=== PATIENT | female | born 1995 | race Caucasian/White ===

== ENCOUNTER 2022-12-15 01:41 | Inpatient (IN) | payer OTHER ==
[~2022-12-15] VITALS: Ht 154.9 cm; Wt 88.5 kg
--- NOTE | 2022-12-15 03:25 | NUR ---
to er bed 9, BIBSELF FROM HOME W/ CC OF RECTAL BLEEDING. -BLOOD THINNER, -CONSTIPATION. AAOX4, BREATHING EVEN AND NON LABORED, CONNECTED TO MONITOR.
[2022-12-15] MEDS ORDERED: PANTOPRAZOLE 80 MG in IV NS 0.9% 100 ML IV ONE (03:30)
[2022-12-15] MEDS ORDERED: PANTOPRAZOLE 40 MG VIAL ONE (03:49)
--- NOTE | 2022-12-15 03:54 | NUR ---
MOVE SHEET SUBMITTED
[2022-12-15 04:32] LABS: BASOPHILS % (AUTO) 0.4 % (0.0-2.0); EOSINOPHILS % (AUTO) 6.7 % (0.0-6.0); HEMATOCRIT 37 % (33-45); HEMOGLOBIN 12.1 g/dL (11.5-14.8); LYMPHOCYTES # (AUTO) 3.9 K/uL (0.8-4.8); LYMPHOCYTES % (AUTO) 41.5 % (20.0-44.0); MEAN CORPUSCULAR HGB CONC 32 g/dl (31.0-36.0); MEAN CORPUSCULAR VOLUME 80 fL (82-100); MONOCYTES # (AUTO) 1.1 K/uL (0.1-1.30); MONOCYTES % (AUTO) 11.6 % (2.0-12.0); NEUTROPHILS # (AUTO) 3.7 K/uL (1.8-8.9); NEUTROPHILS % (AUTO) 39.8 % (43.0-81.0); PLATELET COUNT (AUTO) 301 K/uL (150-450); RED BLOOD CELL COUNT(AUTO) 4.69 MIL/uL (4.0-5.2); WHITE BLOOD COUNT (AUTO) 9.3 K/uL (4.3-11.0)
[2022-12-15 04:45] LABS: CALCIUM, SERUM 9.6 mg/dL (8.5-10.1); CREATININE 0.8 mg/dL (0.6-1.3); POTASSIUM 3.8 mmol/L (3.5-5.1)
[2022-12-15 04:50] LABS: BILIRUBIN,DIRECT 0.1 mg/dL (0.0-0.2); BILIRUBIN,TOTAL 0.2 mg/dL (0.2-1.0); TOTAL PROTEIN, SERUM 8.2 g/dL (6.4-8.2)
--- NOTE | 2022-12-15 05:34 | NUR ---
DR MONTAÑO ON PHONE CALL WITH SALLY WELLINGTON NP
[2022-12-15] MEDS ORDERED: ACETAMINOPHEN 325 MG TABLET PO PRN (06:00)
[2022-12-15] MEDS ORDERED: ONDANSETRON HCL/PF 4 MG/2 ML VIAL IVP PRN (06:00)
--- NOTE | 2022-12-15 06:32 | NUR ---
report given to Radha VÁZQUEZ for felisa
--- NOTE | 2022-12-15 06:34 | NUR ---
REPORT GIVEN TO JODY Cervantes RN FOR BARRY
--- NOTE | 2022-12-15 06:53 | NUR ---
transferred to bed 319 in stable condition
--- NOTE | 2022-12-15 07:30 | NUR ---
RN MS Admission Note 27 years old females came from ER. Handoff reports received from charge nurse. Pt A/O*4, follow commands, no pain, no SOB, and no distress at this moment. Respiration regular, even and unlabored. Skin dry and intact. IV site right arm 20G patent and dressing intact. IV fluid NS started at 75mL/H per order. Bowel sounds present all quadrants. Hand wet primer powder blender strong equally CMS intact. Pt doesn't report of bleeding from rectum this morning. All safety measures in place. Bed in low and locked, call light and table in reach, side rails up*2. Will continue monitoring.
[2022-12-15] MEDS: IV NS 0.9% 1,000 ML IV PRN ×2 (08:26→23:37)
[2022-12-15 08:45] VITALS: BP 119/67; TEMP 98.6
[2022-12-15] MEDS ORDERED: PANTOPRAZOLE 40 MG VIAL IV SCH (09:00)
[2022-12-15 15:56] VITALS: BP 121/60; TEMP 98.1
--- NOTE | 2022-12-15 18:45 | NUR ---
RN MS Closing Note Pt A/O*4, follow commands, no pain, no SOB, and no distress at this moment. Respiration regular, even and unlabored. Skin dry and intact. IV site right hand 20G patent and dressing intact. IV fluid NS running at 75mL/H per order. Bowel sounds present all quadrants. No bowel movement this morning. Voided 3 times. Hand candle pourer strong equally CMS intact. All safety measures in place. Bed in low and locked, call light and table in reach, side rails up*2. Endorsed pt care to filter screen cleaner.
--- NOTE | 2022-12-15 19:30 | NUR ---
MS RN OPENING NOTE PT AWAKE IN BED, FAMILY AT BEDSIDE. A/O X4 AND ABLE TO MAKE NEEDS KNOWN. PT STABLE ON ROOM AIR. NO SOB OR S/S OF RESPIRATORY DISTRESS. BREATHING EVEN AND UNLABORED. IV ACCESS R HAND 20G, INTACT AND PATENT, RUNNING NS @ 75 ML/HR. NO COMPLAINTS OF PAIN OR DISCOMFORT AT THIS TIME. SAFETY PRECAUTIONS IN PLACE. BED IN LOWEST LOCKED POSITION, HOB ELEVATED, SIDE RAILS UP X2, AND CALL LIGHT AND TABLE WITHIN REACH. ALL NEEDS MET AT THIS TIME.
[2022-12-15 22:28] VITALS: BP 115/70; TEMP 98
--- NOTE | 2022-12-16 06:21 | NUR ---
RN NOTE CALLED AND FOLLOWED UP WITH [facility] REGARDING URINE HCG. WAS TOLD THEY WOULD FOLLOW UP EVERYTIME AND NEVER GOT CALL BACK. AT 0600 I CALLED AGAIN ASKING WHY THE URINE HCG WAS NOT DONE AND WAS TOLD THAT THEY NEVER GOT THE URINE. AFTER TELLING THEM THE URINE WAS PICKED UP YESTERDAY AT 1600 AND IT SAYS PENDING, DID THEY SAY THAT THE URINE MUST HAVE BEEN LEAKING AND ANOTHER SAMPLE MUST BE TAKEN. SAMPLE CUP TAKEN INTO PATIENTS ROOM BUT PATIENT STATED "I DON'T HAVE TO PEE RIGHT NOW". INFORMED PATIENT TO USE THE CALL LIGHT WHEN SHE IS READY TO URINATE SO I CAN COLLECT THE SAMPLE AND SEND IT TO LAB. WAS ALSO INFORMED MRSA WAS NOT PROCESSED AND THEY "DO NOT KNOW WHY" BUT WAS TOLD I NEED TO COLLECT ANOTHER SAMPLE. WILL COLLECT MRSA SWAB WHEN URINE IS COLLECTED PATIENT STILL TRYING TO GET SOME SLEEP THIS MORNING. CHARGE NURSE JODY GRAY.
--- NOTE | 2022-12-16 06:40 | NUR ---
RN NOTE URINE AND MRSA IN [place]. CALLED LAB AND INFORMED THEM TO COME PICK IT UP. WAS TOLD THEY WERE SENDING SOMEONE.
--- NOTE | 2022-12-16 06:59 | NUR ---
MS RN CLOSING NOTE PT AWAKE IN BED. A/O X4 AND ABLE TO MAKE NEEDS KNOWN. PT STABLE ON ROOM AIR. NO SOB OR S/S OF RESPIRATORY DISTRESS. BREATHING EVEN AND UNLABORED. IV ACCESS R HAND 20G, INTACT AND PATENT, RUNNING NS @ 75 ML/HR. NO COMPLAINTS OF PAIN OR DISCOMFORT AT THIS TIME. URINE AND MRSA RECOLLECTED AND IN [place], LAB AWARE. NO EPISODES OF RECTAL BLEEDING THIS SHIFT, NO BM. SAFETY PRECAUTIONS IN PLACE AT ALL TIMES. BED IN LOWEST LOCKED POSITION, HOB ELEVATED, SIDE RAILS UP X2, AND CALL LIGHT AND TABLE WITHIN REACH. ALL NEEDS MET AT THIS TIME AND WILL ENDORSE TO ONCOMING NURSE FOR BARRY.
[2022-12-16 07:19] LABS: BASOPHILS % (AUTO) 0.2 % (0.0-2.0); EOSINOPHILS % (AUTO) 4.9 % (0.0-6.0); HEMATOCRIT 36 % (33-45); HEMOGLOBIN 11.4 g/dL (11.5-14.8); LYMPHOCYTES % (AUTO) 46.8 % (20.0-44.0); MEAN CORPUSCULAR HGB CONC 31 g/dl (31.0-36.0); MEAN CORPUSCULAR VOLUME 82 fL (82-100); MONOCYTES # (AUTO) 0.6 K/uL (0.1-1.30); MONOCYTES % (AUTO) 5.9 % (2.0-12.0); NEUTROPHILS # (AUTO) 4.5 K/uL (1.8-8.9); NEUTROPHILS % (AUTO) 42.2 % (43.0-81.0); PLATELET COUNT (AUTO) 278 K/uL (150-450); RED BLOOD CELL COUNT(AUTO) 4.44 MIL/uL (4.0-5.2); WHITE BLOOD COUNT (AUTO) 10.7 K/uL (4.3-11.0)
--- NOTE | 2022-12-16 07:42 | NUR ---
OPENING NOTE PATIENT AWAKE A/Ox4 ON ROOM AIR WITH NO S/S OF SOB OR DISTRESS. IV ACCESS ON R HAND 20G, INTACT AND PATENT. NO PAIN AT THIS TIME. PATIENT EXPRESS HAVING NO RECTAL BLEEDING THROUGHOUT THE NIGHT/ THIS MORNING. NO S/S OF ACTIVE BLEEDING OR EDEMA. AMBULATORY WITH STEADY GAIT: BRP. FALL AND SAFETY PRECAUTION IN PLACE: BED LOCKED AND AT THE LOWEST POSITION, SRx2, CALL LIGHT WITHIN REACH.
[2022-12-16 07:56] LABS: CALCIUM, SERUM 8.5 mg/dL (8.5-10.1); CREATININE 0.5 mg/dL (0.6-1.3); PHOSPHORUS 4.2 mg/dL (2.5-4.9); POTASSIUM 3.7 mmol/L (3.5-5.1)
[2022-12-16 08:00] VITALS: BP 121/81; TEMP 97.7
[2022-12-16] MEDS ORDERED: IOHEXOL-300 100 ML VIAL IV ONE (09:10)
[2022-12-16] MEDS ORDERED: CT SWABBABLE VALVE TRANS SET 1 EA INFUS.SET MC ONE (09:11)
[2022-12-16] MEDS ORDERED: IV NS 0.9% 250 ML IV ONE (09:11)
[2022-12-16] MEDS: PANTOPRAZOLE 40 MG TABLET.DR PO SCH (09:53)
[2022-12-16 16:00] VITALS: BP 111/66; TEMP 98.2
[2022-12-16] MEDS ORDERED: PEG 3350/NA SULF,BICARB,CL/KCL 4,000 ML BOTTLE PO ONE ×2 (18:00)
--- NOTE | 2022-12-16 19:33 | NUR ---
CLOSING NOTE PATIENT IN RESTROOM. NO ASSISTANCE NEED. A/Ox4. CONFIRMED NO PAIN. PATIENT TEACHING ON HOW TO USE BATHROOM CALL LIGHT. ENDORSEMENT TO HOLLOW TILE PARTITION ERECTOR NURSE.
--- NOTE | 2022-12-16 19:35 | NUR ---
MEDICATION NOTE LATE ADMINISTRATION DUE TO LATE MEDICATION ARRIVAL. PHARMACY AWARE.
--- NOTE | 2022-12-16 19:40 | NUR ---
MS RN OPENING NOTE PT AWAKE IN BED. A/O X4 AND ABLE TO MAKE NEEDS KNOWN. PT STABLE ON ROOM AIR. NO SOB OR S/S OF RESPIRATORY DISTRESS. BREATHING EVEN AND UNLABORED. IV ACCESS R HAND 20G, INTACT AND PATENT, RUNNING NS @ 75 ML/HR. NO COMPLAINTS OF PAIN OR DISCOMFORT AT THIS TIME. BSC PLACED AT BEDSIDE FOR [place] ADMINISTRATION, PT CURRENTLY DRINKING MEDICATION. SAFETY PRECAUTIONS IN PLACE. BED IN LOWEST LOCKED POSITION, HOB ELEVATED, SIDE RAILS UP X2, AND CALL LIGHT AND TABLE WITHIN REACH. ALL NEEDS MET AT THIS TIME.
[2022-12-16 20:00] VITALS: BP 111/67; TEMP 98.2
[2022-12-17] MEDS ORDERED: SORBITOL SOLUTION 70% 30 ML SOLUTION PO ONE (06:00)
[2022-12-17] MEDS ORDERED: SORBITOL SOLUTION 70% 30 ML SOLUTION PO SCH (06:00)
--- NOTE | 2022-12-17 06:32 | NUR ---
MS RN CLOSING NOTE PT AWAKE IN BED. A/O X4 AND ABLE TO MAKE NEEDS KNOWN. PT STABLE ON ROOM AIR. NO SOB OR S/S OF RESPIRATORY DISTRESS. BREATHING EVEN AND UNLABORED. IV ACCESS R HAND 20G, INTACT AND PATENT, RUNNING NS @ 75 ML/HR. NO COMPLAINTS OF PAIN OR DISCOMFORT AT THIS TIME. NO EPISODES OF RECTAL BLEEDING THIS SHIFT. KEPT NPO EXCEPT MEDS AFTER MIDNIGHT, DRANK ENTIRE PROCEDURE PREP. CONSENTS SIGNED AND IN CHART. SURGICAL CHECKLIST COMPLETE. SAFETY PRECAUTIONS IN PLACE AT ALL TIMES. BED IN LOWEST LOCKED POSITION, HOB ELEVATED, SIDE RAILS UP X2, AND CALL LIGHT AND TABLE WITHIN REACH. ALL NEEDS MET AT THIS TIME AND WILL ENDORSE TO ONCOMING NURSE FOR BARRY.
[2022-12-17 07:00] VITALS: BP 110/70; TEMP 97
--- NOTE | 2022-12-17 07:31 | NUR ---
MS RN OPENING NOTE RECEIVED PT ASLEEP IN BED. A/O X4 AND ABLE TO MAKE NEEDS KNOWN. PT STABLE ON ROOM AIR. NO SOB OR S/S OF RESPIRATORY DISTRESS. BREATHING EVEN AND UNLABORED. IV ACCESS R HAND 20G, INTACT AND PATENT, RUNNING NS @ 75 ML/HR. NO COMPLAINTS OF PAIN OR DISCOMFORT AT THIS TIME. NO EPISODES OF RECTAL BLEEDING THIS SHIFT. KEPT NPO FOR SURGERY PROCEDURE LATER AT 1230. CONSENTS SIGNED AND IN CHART. SURGICAL CHECKLIST COMPLETE. SAFETY PRECAUTIONS IN PLACE AT ALL TIMES. BED IN LOWEST LOCKED POSITION, HOB ELEVATED, SIDE RAILS UP X2, AND CALL LIGHT AND TABLE WITHIN REACH. ALL NEEDS MET AT THIS TIME AND WILL CONTINUE TO MONITOR.
[2022-12-17] MEDS: PANTOPRAZOLE 40 MG TABLET.DR PO SCH (08:27)
[2022-12-17] MEDS: IV NS 0.9% 1,000 ML IV PRN (08:28)
--- NOTE | 2022-12-17 12:10 | NUR ---
RN NOTES PT LEFT FOR COLONOSCOPY. ALL CONSENTS SIGNED. PREOP CHECKLIST DONE.
--- NOTE | 2022-12-17 13:04 | NUR ---
RN NOTES PT BACK FROM SURGERY. NO DISTRESS NOTED. PT AWAKE/ALERT
[2022-12-17 13:51] VITALS: BP 105/50; TEMP 97.9
[2022-12-17] MEDS ORDERED: ANESTHESIA TRAY IN PYXIS 1 EA TRAY MC ONE (14:12)
--- NOTE | 2022-12-17 14:15 | NUR ---
MS DISTRIBUTOR SALES CONSULTANT NOTES PT DISCHARGE STABLE, NO DISTRESS. DENIES PAIN, BREATHING NORMALLY WITHOUR DIFFICULTY. LEFT AMBULATORY ACCOMPANIED BY FAMILY. ALL BELONGINGS CHECKED AND RECONCILED. SKIN INTACT. ID BAND AND IV ACCESS REMOVED. HEALTH TEACHINGS REINFORCED AND ENCOURAGE HIGH FIBER DIET. INSTRUCTED PT TO RETURN TO ER OR CALL 911 IN CASE OF EMERGENCY. PT VERBALIZED UNDERSTANDING. CHARGE NURSE AWARE.
== END 2022-12-17 14:15 | disposition home or self-care (01) | DRG 395 ==
LOC: ER 01:50 → MED 05:40
PROC: 0DJD8ZZ Inspection of Lower Intestinal Tract, Via Natural or Artificial Opening Endoscopic (ICD-10-PCS; principal; 2022-12-17)
DX: K64.8 Other hemorrhoids (principal); L40.9 Psoriasis, unspecified; E66.9 Obesity, unspecified; Z68.36 Body mass index [BMI] 36.0-36.9, adult; K64.4 Residual hemorrhoidal skin tags; D75.89 Other specified diseases of blood and blood-forming organs; R74.01 Elevation of levels of liver transaminase levels
CPT/HCPCS: 36415; 74178; 80048-TC; 80061-TC; 80076-TC; 83690-TC; 83735-TC; 84100-TC; 84703-TC; 85025-TC; 85730-TC; 86850-TC; 87081-TC; A4223; C9113; G0378; J2704; J3490; J7030; J7050; Q9967

== ENCOUNTER 2024-01-06 22:55 | Emergency (ER) | payer MEDICAID, OTHER ==
[~2024-01-06] VITALS: Ht 154.9 cm; Wt 99.8 kg
[2024-01-07 00:02] LABS: BASOPHILS # (AUTO) 0.1 K/uL (0.0-0.2); BASOPHILS % (AUTO) 0.7 % (0.0-2.0); EOSINOPHILS # (AUTO) 0.1 K/uL (0.0-0.7); HEMATOCRIT 37 % (33-45); HEMOGLOBIN 12.3 g/dL (11.5-14.8); LYMPHOCYTES # (AUTO) 3.2 K/uL (0.8-4.8); LYMPHOCYTES % (AUTO) 36.8 % (20.0-44.0); MEAN CORPUSCULAR HEMOGLOBIN 27 PG (26.0-33.0); MEAN CORPUSCULAR HGB CONC 33 g/dl (31.0-36.0); MEAN CORPUSCULAR VOLUME 81 fL (82-100); MONOCYTES # (AUTO) 0.6 K/uL (0.1-1.30); MONOCYTES % (AUTO) 7.1 % (2.0-12.0); NEUTROPHILS # (AUTO) 4.8 K/uL (1.8-8.9); NEUTROPHILS % (AUTO) 54.4 % (43.0-81.0); PLATELET COUNT (AUTO) 342 K/uL (150-450); RED BLOOD CELL COUNT(AUTO) 4.63 MIL/uL (4.0-5.2); RED CELL DISTRIBUTION WIDTH 15.7 % (11.5-15.0); WHITE BLOOD COUNT (AUTO) 8.7 K/uL (4.3-11.0)
[2024-01-07 00:14] LABS: CALCIUM, SERUM 8.7 mg/dL (8.5-10.1); CARBON DIOXIDE 22 mmol/L (21-32); CHLORIDE 107 mmol/L (98-107); CREATININE 0.7 mg/dL (0.6-1.3); GLUCOSE 105 mg/dL (74-106); POTASSIUM 3.6 mmol/L (3.5-5.1); SODIUM SERUM 143 mmol/L (136-145); UREA NITROGEN, BLOOD 7 mg/dL (7-18)
[2024-01-07 00:25] LABS: APPEARANCE,URINE CLEAR (CLEAR); BILIRUBIN,URINE NEGATIVE (NEGATIVE); BLOOD, URINE NEGATIVE Ery/uL (NEGATIVE); COLOR,URINE YELLOW (YELLOW); KETONES,URINE NEGATIVE (NEGATIVE); LEUKOCYTE ESTERASE ,URINE NEGATIVE (NEGATIVE); NITRITE, URINE NEGATIVE (NEGATIVE); PROTEIN,URINE NEGATIVE (NEGATIVE); UGLUCOSE NEGATIVE (NEGATIVE); UROBILINOGEN,URINE 0.2 EU/dL (0.2)
[2024-01-07 00:37] LABS: AMPHETAMINE, URINE NEGATIVE (NEGATIVE); BARBITURATE, URINE NEGATIVE (NEGATIVE); BENZODIAZEPINE, URINE NEGATIVE (NEGATIVE); CANNABINOID, URINE NEGATIVE (NEGATIVE); COCCAINE, URINE NEGATIVE (NEGATIVE); OPIATE, URINE NEGATIVE (NEGATIVE); PHENCYCLIDINE SCREEN,URINE NEGATIVE (NEGATIVE)
[2024-01-07 00:39] LABS: ALANINE AMINOTRANSFERASE 84 U/L (12-78); ALBUMIN 3.7 g/dL (3.4-5.0); ALCOHOL, BLOOD 199 mg/dL (0-10); ALKALINE PHOSPHATASE 65 U/L (46-116); ASPARTATE AMINOTRANSFERASE 54 U/L (15-37); BILIRUBIN,DIRECT 0.1 mg/dL (0.0-0.2); BILIRUBIN,TOTAL 0.4 mg/dL (0.2-1.0); TOTAL PROTEIN, SERUM 7.8 g/dL (6.4-8.2)
[2024-01-07 00:43] LABS: ACETAMINOPHEN <10 ug/ml (10-30); SALICYLATE 0.9 mg/dL (2.8-20.0)
[2024-01-07 07:59] VITALS: BP 133/73; O2SAT 97
== END 2024-01-07 08:01 | disposition home or self-care (01) ==
LOC: ER 22:58
DX: F10.129 Alcohol abuse with intoxication, unspecified (principal); F41.0 Panic disorder [episodic paroxysmal anxiety]; F43.9 Reaction to severe stress, unspecified; M81.0 Age-related osteoporosis without current pathological fracture; Z20.822 Contact with and (suspected) exposure to COVID-19; Y90.8 Blood alcohol level of 240 mg/100 ml or more
CPT/HCPCS: 36415; 80048-TC; 80076-TC; 85025-TC; 98960; G0480